=== PATIENT | female | born 1975 ===

== ENCOUNTER 2017-06-04 15:16 | Emergency (ER) | payer BC ==
[2017-06-04] MEDS ORDERED: Sodium Chloride 0.9% 1,000 ML IV STA (15:53)
--- NOTE | 2017-06-04 15:59 | ED PDOC ---
Arrival/HPI - General Chief Complaint: Abdominal Pain Time Seen by Provider: 06/04/17 15:22 Historian: Patient - History of Present Illness Narrative History of Present Illness (Text): 06/04/17 15:58 A 42 year old female presents to the emergency department complaining of right sided abdominal pain, worsening for the past three days. Patient notes pain is worse to the right side. Patient reports nausea but denies any fever, vomiting or any other complaints at this time. Time/Duration: Other (3 days) Symptom Onset: Sudden Symptom Course: Unchanged Activities at Onset: Rest Context: Home Past Medical History - Provider Review Nursing Documentation Reviewed: Yes - Cardiac Hx Cardiac Disorders: No - Pulmonary Hx Respiratory Disorders: Yes Hx Asthma: Yes - Neurological Hx Neurological Disorder: No - HEENT Hx HEENT Disorder: No - Renal Hx Renal Disorder: No - Musculoskeletal/Rheumatological Hx Musculoskeletal Disorders: No - Gastrointestinal Hx Constipation: Yes - Psychiatric Hx Psychophysiologic Disorder: No Hx Substance Use: No - Surgical History Hx Tubal Ligation: Yes Family/Social History - Physician Review Nursing Documentation Reviewed: Yes Family/Social History: No Known Family HX Smoking Status: Never Smoked Hx Alcohol Use: No Hx Substance Use: No Allergies/Home Meds Allergies/Adverse Reactions: Allergies shellfish derived Allergy (Verified 06/04/17 15:57) URTICARIA Home Medications: Home Meds Medication Instructions Recorded Confirmed Naproxen [Naprosyn] 500 mg PO DAILY 06/04/17 06/04/17 Review of Systems - Physician Review All systems were reviewed & negative as marked: Yes - Review of Systems Constitutional: absent: Fevers Gastrointestinal: Abdominal Pain (right sided), Nausea. absent: Vomiting Physical Exam Vital Signs Reviewed: Yes Vital Signs Temp Pulse Resp BP Pulse Ox 06/04/17 19:32 98.7 F 92 H 18 140/27 L 100 06/04/17 15:53 98.5 F 90 18 137/22 L 100 Temperature: Afebrile Blood Pressure: Normal Pulse: Regular Respiratory Rate: Normal Appearance: Positive for: Well-Appearing, Non-Toxic, Comfortable Pain Distress: None Mental Status: Positive for: Alert and Oriented X 3 - Systems Exam Head: Present: Atraumatic, Normocephalic Pupils: Present: PERRL Extroacular Muscles: Present: EOMI Conjunctiva: Present: Normal Mouth: Present: Moist Mucous Membranes Neck: Present: Normal Range of Motion Respiratory/Chest: Present: Clear to Auscultation, Good Air Exchange. No: Respiratory Distress, Accessory Muscle Use Cardiovascular: Present: Regular Rate and Rhythm, Normal S1, S2. No: Murmurs Abdomen: Present: Tenderness (RLQ), Normal Bowel Sounds. No: Distention, Peritoneal Signs, Rebound, Guarding Back: Present: Normal Inspection Upper Extremity: Present: Normal Inspection. No: Cyanosis, Edema Lower Extremity: Present: Normal Inspection. No: Edema Neurological: Present: GCS=15, CN II-XII Intact, Speech Normal Skin: Present: Warm, Dry, Normal Color. No: Rashes Psychiatric: Present: Alert, Oriented x 3, Normal Insight, Normal Concentration Medical Decision Making ED Course and Treatment: 06/04/17 15:57 Impression: A 42 year old female with right sided abdominal pain and nausea. Plan: -- CT abd/pelvis -- labs -- Urinalysis -- Zofran, IV fluids -- Reassess and disposition Progress Notes: 06/04/17 18:59 CT Abdomen and Pelvis with contrast Creator : DR. Lanye, Basil DAVIS IMPRESSION: 1. No acute findings related to/accounting for the clinical presentation. 2. Incidental finding(s): Prominent retroverted uterus, possible lower uterine segment fibroid. Fluid in the endometrial canal. Follow-up based on clinical findings advised, at a minimum, a pelvic ultrasound. 06/04/17 19:10 On reevaluation, pain is improving. Patient was offered abdomen US for further clarification, but declines. - Lab Interpretations Lab Results: 06/04/17 16:28 06/04/17 16:28 Lab Results 06/04/17 16:28: Sodium 141, Potassium 4.1, Chloride 104, Carbon Dioxide 28, Anion Gap 14, BUN 13, Creatinine 0.8, Est GFR ( Amer) > 60, Est GFR (Non- Af Amer) > 60, Random Glucose 91, Calcium 9.4, Total Bilirubin 0.5, AST 44 H, ALT 26, Alkaline Phosphatase 92, Total Protein 8.0, Albumin 4.4, Globulin 3.5, Albumin/Globulin Ratio 1.3, Lipase 73 06/04/17 16:28: PT 12.8 H, INR 1.17 H, APTT 31.1 06/04/17 16:28: WBC 7.8, RBC 4.45, Hgb 12.6, Hct 38.1, MCV 85.6, MCH 28.3, MCHC 33.1, RDW 13.2, Plt Count 324, MPV 8.7, Gran % 59.8, Lymph % (Auto) 33.2, Ralls % (Auto) 4.7, Eos % (Auto) 1.9, Baso % (Auto) 0.4, Gran # 4.67, Lymph # 2.6, Ralls # 0.4, Eos # 0.2, Baso # 0.03 06/04/17 15:50: Urine Color Yellow, Urine Appearance Slight-cloudy, Urine pH 6.5 , Ur Specific [place] 1.020, Urine Protein Negative, Urine Glucose (UA) Negative , Urine Ketones Negative, Urine Blood Small H, Urine Nitrate Negative, Urine Bilirubin Negative, Urine Urobilinogen 0.2, Ur Leukocyte Esterase Negative, Urine RBC 0 - 2, Urine WBC 1 - 3, Ur Epithelial Cells 6 - 8, Urine Bacteria Few , Urine HCG, Qual Negative I have reviewed the lab results: Yes - RAD Interpretation Radiology Orders: 06/04/17 17:22 ABD & PELVIS IV CONTRAST ONLY [CT] Stat - Medication Orders Current Medication Orders: Discontinued Medications Acetaminophen (Tylenol 325mg Tab) 975 mg PO STAT STA Stop: 06/04/17 17:24 Last Admin: 06/04/17 19:22 Dose: 975 mg MAR Pain/Vitals Document 06/04/17 19:22 RG (Rec: 06/04/17 19:23 [id number]) Pain Reassessment Is This A Pain ReAssessment? Yes Location Left, Right or Bilateral Bilateral Pain Location Body Site Back Sodium Chloride (Sodium Chloride 0.9%) 1,000 mls @ 1,000 mls/hr IV .Q1H STA Stop: 06/04/17 16:52 Last Admin: 06/04/17 16:30 Dose: 1,000 mls/hr eMAR Start Stop Document 06/04/17 16:30 RG (Rec: 06/04/17 16:36 RG [id number]) Intravenous Solution Start Date 06/04/17 Start Time 16:30 End Date 06/04/17 Ondansetron HCl (Zofran Inj) 4 mg IVP STAT STA Stop: 06/04/17 15:54 Last Admin: 06/04/17 16:30 Dose: 4 mg IVP Administration Document 06/04/17 16:30 RG (Rec: 06/04/17 16:[address] [facility] [place] [id number]) Charges for Administration # of IVP Administrations 1 - Scribe Statement The provider has reviewed the documentation as recorded by the Scribe Sky Ly Provider Scribe Attestation: All medical record entries made by the Scribe were at my direction and personally dictated by me. I have reviewed the chart and agree that the record accurately reflects my personal performance of the history, physical exam, medical decision making, and the department course for this patient. I have also personally directed, reviewed, and agree with the discharge instructions and disposition. Disposition/Present on Arrival - Present on Arrival Any Indicators Present on Arrival: No History of DVT/PE: No History of Uncontrolled Diabetes: No Urinary Catheter: No History of Decub. Ulcer: No History Surgical Site Infection Following: None - Disposition Have Diagnosis and Disposition been Completed?: Yes Diagnosis: Abdominal pain Disposition: HOME/ ROUTINE Disposition Time: 07:30 Condition: STABLE Discharge Instructions (ExitCare): Acute Abdominal Pain (ED) Additional Instructions: return to er with worsening symptoms or concerns. please see specialist. you will need to obtain an ultrasound of your pelvis. please discuss your results with your doctor/specialist. Referrals: Simran Chavez, [Primary Care Provider] - Follow up with primary Joss Garcia MD [Staff Provider] - Follow up with primary Margarita Estes MD [Medical Doctor] - Follow up with primary Forms: [facility] ([place]ian)
[2017-06-04 16:00] LABS: PH,URINE 6.5 (4.7-8.0); URINE BILIRUBIN NEGATIVE (NEGATIVE); URINE BLOOD SMALL (NEGATIVE); URINE GLUCOSE (UA) NEGATIVE (NEGATIVE); URINE KETONE NEGATIVE (NEGATIVE); URINE LEUKOCYTE ESTERASE NEGATIVE Leu/uL (NEGATIVE); URINE PROTEIN NEGATIVE mg/dL (<30 mg/dL); URINE UROBILINOGEN 0.2 E.U./dL (<1 E.U./dL)
[2017-06-04 16:12] LABS: URINE APPEARANCE SLIGHT-CLOUDY (CLEAR); URINE COLOR YELLOW (YELLOW)
[2017-06-04 16:46] LABS: URINE RBC 0 - 2 /hpf (0-2)
[2017-06-04 16:47] LABS: URINE BACTERIA FEW (NEG)
[2017-06-04 16:47] LABS: BASO # 0.03 K/mm3 (0.0-2.0); BASO % 0.4 % (0.0-3.0); EOS # 0.2 (0.0-0.7); EOS % 1.9 % (1.5-5.0); GRAN # 4.67 (1.4-6.5); GRAN % 59.8 % (50.0-68.0); HEMATOCRIT 38.1 % (36.0-48.0); LYMPH # 2.6 (1.2-3.4); LYMPH % 33.2 % (22.0-35.0); MEAN CELL VOLUME 85.6 fl (80.0-105.0); MEAN CORPUSCULAR HEMOGLOBIN 28.3 pg (25.0-35.0); MEAN CORPUSCULAR HGB CONC 33.1 g/dl (31.0-37.0); MEAN PLATELET VOLUME 8.7 fl (7.0-11.0); MONO # 0.4 (0.1-0.6); MONO % 4.7 % (1.0-6.0); RED CELL DISTRIBUTION WIDTH 13.2 % (11.5-14.5); WHITE BLOOD COUNT 7.8 10^3/ul (4.5-11.0)
[2017-06-04 17:03] LABS: INR 1.17 (0.93-1.08); PARTIAL THROMBOPLASTIN TIME 31.1 Seconds (25.1-36.5)
[2017-06-04 17:13] LABS: ALB/GLOB RATIO 1.3 (1.1-1.8); ALKALINE PHOSPHATASE 92 U/L (38-126); ALT/SGPT 26 U/L (7-56); AST/SGOT 44 U/L (14-36); BILIRUBIN,TOTAL 0.5 mg/dL (0.2-1.3); BLOOD UREA NITROGEN 13 mg/dL (7-21); CALCIUM 9.4 mg/dL (8.4-10.5); CARBON DIOXIDE 28 mmol/L (21-33); CHLORIDE 104 mmol/L (98-107); GFR AFRICAN-AMERICAN > 60; GLUCOSE,RANDOM 91 mg/dL (70-110); LIPASE 73 U/L (23-300); POTASSIUM 4.1 mmol/L (3.6-5.0); SODIUM 141 mmol/L (132-148)
[2017-06-04] MEDS ORDERED: Iodixanol 320 MG/ML 100 ML BOTTLE IV ONE (18:08)
--- NOTE | 2017-06-04 18:57 | CT ---
PROCEDURE: CT Abdomen and Pelvis with contrast HISTORY: Right-sided abdominal pain. Radiating to right lower extremity By history, negative test (concurrent with this examination). Duration of symptoms: 3 days COMPARISON: None. TECHNIQUE: Contrast dose: 100 cc Visipaque 320 Radiation dose: Total exam DLP = 679.80 mGy-cm. This CT exam was performed using one or more of the following dose reduction techniques: Automated exposure control, adjustment of the mA and/or kV according to patient size, and/or use of iterative reconstruction technique. FINDINGS: LOWER THORAX: Unremarkable. LIVER: Unremarkable. No gross lesion or ductal dilatation. GALLBLADDER AND BILE DUCTS: Unremarkable. PANCREAS: Unremarkable. No gross lesion or ductal dilatation. SPLEEN: Unremarkable. ADRENALS: Unremarkable. No mass. KIDNEYS AND URETERS: Unremarkable. No hydronephrosis. No solid mass. VASCULATURE: Unremarkable. No aortic aneurysm. BOWEL: Diverticulosis without an acute inflammatory component or other associated pathologic process. Constipation without fecal impaction or obstruction. APPENDIX: Normal appendix. PERITONEUM: Unremarkable. No free fluid. No free air. LYMPH NODES: Unremarkable. No enlarged lymph nodes. BLADDER: Unremarkable. REPRODUCTIVE: Retroverted uterus, fluid in the endometrial canal. Small adnexal cysts/ follicles. Possible fibroid in the lower uterine segment. Ultrasound recommended for further assessment if clinically appropriate in this setting or, on elective basis. BONES: No acute fracture. OTHER FINDINGS: None. IMPRESSION: 1. No acute findings related to/accounting for the clinical presentation. 2. Incidental finding(s): Prominent retroverted uterus, possible lower uterine segment fibroid. Fluid in the endometrial canal. Follow-up based on clinical findings advised, at a minimum, a pelvic ultrasound.
[2017-06-04 19:33] VITALS: BP 140/27; PULSE 92; RESP 18; TEMP 98.7; O2SAT 100
== END 2017-06-04 19:33 | disposition home or self-care (01) ==
LOC: ED 15:16
DX: R10.9 Unspecified abdominal pain (principal)
CPT/HCPCS: 74177; 80053; 81001; 83690; 84703; 85025; 85610; 85730; 96374; 99284; J2405; J7040; Q9967